=== PATIENT | female | born 1980 | race Caucasian/White ===

== ENCOUNTER 2016-12-19 12:49 | Emergency (ER) | payer OTHER ==
[~2016-12-19] VITALS: Ht 175.3 cm; Wt 68.0 kg
[~2016-12-19 12:49] MED LIST: OXYC-360 PO; PRENTAB72 PO
[2016-12-19 12:54] VITALS: BP 133/81; PULSE 105; RESP 16; TEMP 98.6; O2SAT 98
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
--- NOTE | 2016-12-19 14:38 | RADRPT ---
EXAM DATE/TIME: 12/19/2016 14:06 [facility] COMPARISON: No previous studies available for comparison. INDICATIONS : Foreign body. Deep abrasion to left foot. MEDICAL HISTORY : None. SURGICAL HISTORY : None. ENCOUNTER: Initial ACUITY: 2 days PAIN SCORE: 10/10 LOCATION: Left dorsolateral foot FINDINGS: Three view examination of the left foot demonstrates no soft tissue swelling, dislocation, or fractur e. The tarsal bones appear intact. The interphalangeal and metatarsophalangeal joints are intact. The calcaneus is intact. Bony mineralization is normal. No radiopaque foreign body observed. CONCLUSION: No radiopaque foreign body observed. Alni Carpio Jr., MD on December 19, 2016 at 14:36 Board Certified Radiologist. This report was verified electronically.
[2016-12-19] MEDS ORDERED: IBUPROFEN 600 MG TAB PO ONE (14:45)
[2016-12-19] MEDS ORDERED: LIDOCAINE 1%/EPINEPHrine 1:100,000 SOLN 20 ML VIAL INFIL ONE (14:45)
[2016-12-19] MEDS ORDERED: SULFAMETHOXAZOLE-TRIMETHOPRIM DS 800-160 MG TAB PO ONE (14:45)
[2016-12-19] MEDS ORDERED: CEPHALEXIN MONOHYDRATE 500 MG CAP PO ONE (14:45)
[2016-12-19] MEDS ORDERED: ACETAMINOPHEN 500 MG CPLT PO ONE (14:45)
[2016-12-19] MEDS ORDERED: BACT800T5 PO (15:02)
[2016-12-19] MEDS ORDERED: CEPH500C PO (15:02)
[2016-12-19] MEDS ORDERED: IBUP-232 PO (15:02)
[2016-12-19] MEDS ORDERED: NON-500T13 PO (15:02)
== END 2016-12-19 15:27 | disposition home or self-care (01) ==
LOC: PHED 12:49 → PHEFT 15:27
DX: S91.312A Laceration without foreign body, left foot, initial encounter (principal); X58.XXXA Exposure to other specified factors, initial encounter; Y93.55 Activity, bike riding; Y92.488 Other paved roadways as the place of occurrence of the external cause
CPT/HCPCS: 12001; 73630

== ENCOUNTER 2018-01-15 06:40 | Inpatient (IN) ==
--- NOTE | 2018-01-14 18:44 | MH ---
cc: London Rosenberg MD DATE OF ADMISSION: 01/15/2018 REASON FOR ADMISSION: Repeat elective section at term. HISTORY OF PRESENT ILLNESS: The patient is a 37-year-old female, 2, para 1, estimated date of confinement 01/21/2018. She is 39 weeks and 1 day with an uncomplicated and elected for repeat section at term. The patient's obstetrical history is unremarkable. LABORATORY DATA: Group B strep status negative. Diabetes testing negative. Cell free DNA aneuploidy testing negative. The patient's blood type is AB negative. ALLERGIES: THE PATIENT HAS NO KNOWN DRUG ALLERGIES. PAST MEDICAL HISTORY: She denies any current chronic or systemic disease processes. SOCIAL HISTORY: The patient is and has a good support system. The patient denies use of alcohol, tobacco or illicit substances. OBSTETRICAL HISTORY: Previously a full-term in 2012 resulting in a delivery due to cephalopelvic disproportion. Baby weighed 9 pounds 3 ounces, healthy male. PHYSICAL EXAMINATION: GENERAL: The patient is a well-appearing, well-nourished female in no acute distress. VITAL SIGNS: Stable. Pulse and respiratory rate are within normal limits. Blood pressure is 114/78. The patient's heart tones are 140s. HEENT: Shows no adenopathy or thyromegaly. Neck supple with full range of motion. LUNGS: Clear in all proctor. CARDIAC: Regular rate and rhythm without murmur, rub or gallop. ABDOMEN: Gravid, full-term. Fundal height is 42 cm. PELVIC: Deferred. She has no associated symptoms of bleeding, pain, leakage of fluid or pressure. EXTREMITIES: Symmetrical with full range of motion. There is no cyanosis, clubbing or edema. NEUROLOGIC: Grossly intact, nonfocal. ASSESSMENT AND PLAN: The patient is term, 39 weeks and 1 day, for repeat elective section at term, uncomplicated course and history. The patient will receive Ancef as a prophylactic antibiotic. London Rosenberg MD SJC/jl , 06:05 PM , 06:14 PM
[2018-01-15] MEDS ORDERED: Morphine Sulfate PF Inj 5 MG/10 ML Ampul ONE (07:59)
[2018-01-15] MEDS ORDERED: Citric Acid/Sodium Citrate Liq 30 ML UDC PO SCH (08:00)
[2018-01-15] MEDS ORDERED: ceFAZolin Inj 2,000 MG in Sodium Chlor 0.9% Inj 80 ML IV.SIG SCH (08:00)
[2018-01-15 08:07] LABS: Baso % (Auto) 0.4 % (0.0-2.0); Eos % (Auto) 0.6 % (0.0-4.0); Hematocrit 37.9 % (35.0-46.0); Hemoglobin 12.7 gm/dL (11.6-15.3); Lymph # (Auto) 1.2 th/mm3 (1.0-4.8); Lymph % (Auto) 24.5 % (9.0-44.0); Mean Corpuscular HGB Conc 33.4 % (32.0-36.0); Mean Corpuscular Hemoglobin 28.2 pg (27.0-34.0); Mean Corpuscular Volume 84.3 fL (80.0-100.0); Mean Platelet Volume 8.8 fL (7.0-11.0); Mono # (Auto) 0.4 th/mm3 (0.0-0.9); Mono % (Auto) 8.3 % (0.0-8.0); Neut # (Auto) 3.3 th/mm3 (1.8-7.7); Neut % (Auto) 66.2 % (16.0-70.0); Platelet Count 164 th/mm3 (150-450); Red Cell Distribution Width 14.4 % (11.6-17.2)
[2018-01-15 08:41] LABS: Bacteria,Urine Few /hpf; Bilirubin,Urine Negative (Negative); Clarity,Urine Hazy (Clear); Color,Urine Yellow (Yellw/Straw); Glucose,Urine (UA) Negative (Negative); Leukocyte Esterase,Urine Negative (Negative); Mucus,Urine Few /lpf (Occasional); Nitrite,Urine Negative (Negative); Specific Gravity,Urine 1.015 (1.002-1.035); Squamous Epithelial Cell,Urine 3 /hpf (0-5)
[2018-01-15 09:05] LABS: Amphetamine Screen,Urine Neg (Neg); Barbiturate Screen,Urine Neg (Neg); Cannabinoid Screen,Urine Neg (Neg); Cocaine Screen,Urine Neg (Neg)
[2018-01-15 09:06] LABS: Opiate Screen,Urine Neg (Neg)
[2018-01-15] MEDS ORDERED: Oxytocin 30 Units/500ml Premix 30 UNITS/500 ML BAG IV.SIG ONE (09:37)
--- NOTE | 2018-01-15 09:37 | P.OBDELI ---
Procedure Note Performed by: London Rosenberg MD Procedure: Repeat Low Transverse Section Indication for Delivery: Desired elective repeat Informed Consent Obtained: For anesthesia, For procedure Confirmed Correct: Patient, Procedure, Site, Time-out taken Anesthesia: Spinal Medication Prior to Procedure: As documented in eMAR Monitoring During Procedure: Blood pressure monitoring, monitor car operator, doppler, Pulse oximetry Urinary Catheter: Inserted using sterile technique, To dependent drainage Sterile Preparation: Duraprep, In usual fashion Position: Supine with wedge to right side, Supine with safety belt applied - Operative Features Skin Incision: Pfannenstiel Uterine Incision: Low transverse w/knife / scissors Membranes Ruptured: Artificially, Appearance of fluid (clear) Presentation: Occiput anterior (KiWi vacuum used with 1 pull, no pop off) Status of : Viable, Cord blood, Nursery present Placenta Delivered: Intact Medications: Antibiotics, Oxytocin Estimated blood loss (mL): 600 Maternal Condition: Stable Baby Condition: Stable - Infant: Male Delivery Date: 01/15/18 Weight: 3.827 kg score (1 min): 9 score (5 min): 10
--- NOTE | 2018-01-15 10:25 | MP ---
cc: Londno Rosenberg MD DATE OF OPERATION: 01/15/2018 PREOPERATIVE DIAGNOSES: Term intrauterine , previous section, for elective repeat section. PROCEDURE PERFORMED: Repeat low transverse section, delivery of viable male . POSTOPERATIVE DIAGNOSES: Term intrauterine , previous section, for elective repeat section. SURGEON: London Rosenberg MD. ANESTHESIA: Spinal. ESTIMATED BLOOD LOSS: 600 mL. DRAINS: Richard to gravity. OPERATIVE FINDINGS: Male delivered with the aid of a vacuum extractor x 1 pull. No pop-off. Baby weighed 8 pounds 7 ounces. Apgars were 9 at one minute, 10 at five. INDICATIONS FOR PROCEDURE: The patient,at term for elective , history of previous cesareans section. PROCEDURE DESCRIPTION: The patient received Ancef 2 grams prophylactically. She was taken to the operative suite in stable condition with a category 1 heart rate tracing documented. The patient underwent spinal anesthetic without complication with good results. She had sequentials placed on the lower extremities for VTE prophylaxis. She had a Richard catheter inserted by sterile technique. She was prepped and draped. Timeout was conducted, agreed by all present in the room. The patient had excellent pain control. The Pfannenstiel scar from the previous section was utilized using a #10 blade, opening the incision down through the subcutaneous space to the fascia, which was scored laterally by sharp dissection, dissecting away any scar and then the rectus muscle in the midline. The peritoneum was identified and opened sharply. The bladder blade was placed over the pubic symphysis. There was no scarring or adhesions noted. The lower uterine segment was identified and a transverse incision was made in the lower uterine segment with clear fluid. The was delivered with the aid of a vacuum extractor due to anatomic restrictions. This was uncomplicated. The infant was delivered in total with good tone and cry. There was no cord entanglement. A 45-second cord delayed clamping was conducted. Cord was doubly clamped and then the infant was taken to [place] by the nursery staff. Good tone and cry were noted throughout. Cord sample was obtained for typing. Placenta was removed intact with trailing membranes along with the umbilical cord and then it was sent for donation. The uterus was examined. There was no retained tissue. Good hemostasis was documented. The uterus was closed with a double layer, first was a running locking suture of #0 Monocryl followed by a second imbricating suture of #0 Monocryl. No hematoma was noted. Good result was noted. Pelvis was irrigated and aspirated. Once all the free fluid was retrieved, the peritoneal layer was closed with a running suture of 2-0 Monocryl. The muscle belly was reapproximated with an interrupted mattress suture of 2-0 Monocryl. The fascia was then closed with #0 Vicryl in a simple running fashion with good result. The subcutaneous space was closed after cauterizing any active bleeding using a running suture of 2-0 Monocryl to reapproximate the space. Naper were used to reapproximate the skin edge and a dressing was applied. The final count was correct. The patient was stable. Infant was doing well in the nursery. MD MARIO Barkley/neftaly , 09:48 AM , 09:54 AM
[2018-01-15] MEDS ORDERED: Oxytocin 30 Units/500ml Premix 30 UNITS/500 ML BAG ONE (10:50)
[2018-01-15] MEDS ORDERED: Naloxone Inj 0.4 MG/ML Vial IV.PUSH PRN (11:07)
[2018-01-15] MEDS ORDERED: Phenylephrine/NS 1000 MCG/10ML Syringe IV.PUSH ONE (12:00)
[2018-01-15] MEDS ORDERED: Oxytocin 30 Units/500ml Premix 30 UNITS/500 ML BAG IV.SIG PRN (14:37)
[2018-01-15] MEDS: Ibuprofen 600 MG Tablet PO PRN ×2 (16:41→22:57)
[2018-01-16] MEDS: Ibuprofen 600 MG Tablet PO PRN ×3 (07:24→21:26)
--- NOTE | 2018-01-16 08:09 | P.PNOB ---
Subjective Post op day: 1 Interval history: Еленаgn very well with nursing pain well controlled no concerns today wants to do circ in office Objective Vital Signs/I&O: Vital Signs 01/15/18 09:40 01/15/18 09:55 01/15/18 10:10 Temperature 98.2 F Pulse Rate 92 H 92 H 90 Respiratory Rate 14 15 15 Blood Pressure 108/61 107/57 L 104/58 L 01/15/18 10:25 01/15/18 10:40 01/15/18 11:20 Temperature 97.8 F 98.1 F Pulse Rate 97 H 97 H 86 Respiratory Rate 17 17 16 Blood Pressure 94/59 L 116/60 109/69 01/15/18 16:32 01/15/18 20:00 01/15/18 23:59 Temperature 98.7 F 98.6 F 98.4 F Pulse Rate 78 95 H 101 H Respiratory Rate 17 16 18 Blood Pressure 114/76 124/83 121/73 01/16/18 04:00 Temperature 98.1 F Pulse Rate 91 H Respiratory Rate 17 Blood Pressure 111/71 Result Diagrams: 01/15/18 07:25 Objective Remarks: GENERAL: Well-nourished, well-developed patient. CARDIOVASCULAR: Regular rate and rhythm without murmurs, gallops, or rubs. RESPIRATORY: Breath sounds equal bilaterally. No accessory muscle use. ABDOMEN/GI: Abdomen soft, non-tender, bowel sounds present. bandage Clean, dry and intact. Fundus: Firm, non-tender at umbilicus. GENITOURINARY: Light to moderate bleeding. EXTREMITIES: No cyanosis or edema, non-tender, without signs of DVT. Medications and IVs: Active Medications Citric Acid/Sodium Citrate (Sodium Citrate/Citric Acid Liq) 30 ml PO [employer] BR[employer]PERATOR [facility] Stop: 01/19/18 07:59 Last Admin: 01/15/18 10:04 Dose: 30 ml Diphenhydramine HCl (Benadryl) 50 mg PO Q6H PRN PRN Reason: MILD TO MODERATE ITCHING Stop: 01/16/18 11:06 Diphenhydramine HCl (Benadryl Inj) 25 mg IV.PUSH Q6H PRN PRN Reason: MILD TO MODERATE ITCHING Stop: 01/16/18 11:06 Diphtheria/Pertussis/Tetanus Vacc (Boostrix Vaccine Inj) 0.5 ml IM .ONCE ONE Stop: 01/16/18 16:01 Cefazolin Sodium 2,000 mg/ (Sodium Chloride) 100 mls @ 200 mls/hr IV.SIG [employer] BR[employer]ATOR [facility] Stop: 01/19/18 07:59 Last Admin: 01/15/18 08:38 Dose: 200 mls/hr Lactated Ringer's (Lr 1000 Ml Inj) 1,000 mls @ 150 mls/hr IV.CONT .Q6H40M [facility] Last Admin: 01/15/18 18:29 Dose: Not Given Lactated Ringer's (Lr 1000 Ml Inj) 1,000 mls @ 100 mls/hr IV.CONT .Q10H [facility] Stop: 01/16/18 10:36 Oxytocin (Pitocin 30 Units/Ns 500 Ml Premix) 30 units in 500 mls @ 100 mls/hr IV.SIG UNSCH PRN PRN Reason: Heavy bleeding Ibuprofen (Motrin) 600 mg PO Q6H PRN PRN Reason: CRAMPING Last Admin: 01/16/18 07:24 Dose: 600 mg Measles/Mumps/Rubella Vaccine Live (M-M-R Ii Vaccine Inj) 0.5 ml SQ .ONCE ONE Stop: 01/16/18 16:01 Miscellaneous Information [place] [facility] 1 each OTHER UNSCH PRN PRN Reason: SEE LABEL COMMENTS Stop: 01/16/18 11:06 Miscellaneous Information [place] [place] 1 each OTHER UNSCH PRN PRN Reason: SEE LABEL COMMENTS Stop: 01/16/18 11:06 Naloxone HCl (Narcan Inj) 0.4 mg IV.PUSH UNSCH PRN PRN Reason: SEE LABEL COMMENTS Stop: 01/16/18 11:06 Oxycodone/Acetaminophen (Percocet 5/325 Mg) 2 tab PO Q4H PRN PRN Reason: PAIN SCALE 6 TO 10 Last Admin: 01/16/18 07:24 Dose: 2 tab Oxycodone/Acetaminophen (Percocet 5/325 Mg) 1 tab PO Q4H PRN PRN Reason: PAIN SCALE 3 TO 5 Last Admin: 01/16/18 02:52 Dose: 1 tab Sodium Chloride (Ns Flush) 2 ml IV.FLUSH PRN PRN PRN Reason: FLUSH AFTER USING IV ACCESS Sodium Chloride (Ns Flush) 2 ml IV.FLUSH BID [facility] Last Admin: 01/16/18 05:01 Dose: Not Given Assessment and Plan - Diagnosis (1) Previous section Code(s): Z98.891 - History of uterine scar from previous surgery Status: Acute (2) Status post delivery Code(s): Z98.891 - History of uterine scar from previous surgery Status: Acute - Plan routine post op plans on circ in office discussed staple removal activity and precautions home POD 2 or 3
[2018-01-16] MEDS: Senna/Docusate Sodium 8.6/50 MG Tablet PO PRN (11:52)
[2018-01-16] MEDS ORDERED: Diphtheria/Tetanus/Pertussis Vaccine Inj 0.5 ML Syringe IM ONE (16:00)
[2018-01-16] MEDS ORDERED: Measles/Mumps/Rubella Vaccine Inj 0.5 ML Vial SQ ONE (16:00)
[2018-01-17] MEDS: Ibuprofen 600 MG Tablet PO PRN ×3 (06:16→21:10)
--- NOTE | 2018-01-17 10:29 | P.OBGPN ---
Queried PDMP and reviewed report
--- NOTE | 2018-01-17 10:31 | P.DS ---
Date of admission: 01/15/18 06:40 Primary care physician: Patrizia Hernández Brief History from admission: 37-year-old 002 who presented at 39 weeks for scheduled repeat section, please see operative report for further details, she was discharged on postoperative day #3 without complications. DS: Summary Hospital Course: see brief history - Time Spent with Patient Total time spent providing and/or coordinating discharge services: Less than 30 minutes Exam Vital signs: Vital Signs 01/16/18 17:20 01/16/18 17:24 01/16/18 17:45 Temperature 98.0 F 98.0 F 98.0 F Pulse Rate 93 H 93 H 80 Respiratory Rate 18 16 Blood Pressure 129/89 129/89 119/78 01/16/18 20:00 01/16/18 22:21 01/16/18 22:22 Temperature 98.3 F Pulse Rate 93 H Respiratory Rate 18 18 18 Blood Pressure 119/76 01/17/18 03:27 01/17/18 09:32 01/17/18 09:33 Temperature 98.6 F Pulse Rate 84 Respiratory Rate 20 18 Blood Pressure 120/76 Intake & Output 01/16/18 01/17/18 01/17/18 18:59 06:59 18:59 Intake Total 1999 Balance 1999 Intake: IV 1999 LR 1000 mL Inj 1,000 ML @ 150 1999 mls/hr IV.CONT .Q6H40M [facility] Rx#: [id number] Intake (Blood Product) Amt 0 / 0 Rho(D) Immune Globulin Unit 0 / 0 [id number] Results Procedures completed during hospitalization: Repeat Labs on day of discharge: Labs from last 24 hours 01/15/18 18:00 Blood Type AB Negative Ab Screen Tube Method Negative Blood Bank Comment Discharge Plan - Discharge Disposition Patient Disposition: 01 Discharge Home - Discharge Condition Condition: Good - Discharge Order Discharge Orders: Discharge Order (Routine); Ordered 01/18/18 Ordered By: Jose J Strickland - Discharge Details Anticipated Discharge Date: 01/18/18 - Physicians Team Primary Care Provider: Patrizia Hernández Attending Provider: London Rosenberg - Rxs /Orders / Referrals /Forms Prescriptions: Continue Referrals: Patrizia Hernández MD [Primary Care Provider] - See Instructions - Discharge Instructions Patient Printed Instructions: (DC) - Post Discharge Care Plan Care Plan Goals: Congratulations on your new baby! We want your recovery to be kaba and trouble free. Please Report the Following Symptoms to Your Doctor: -Temperature above 100.5 degrees -Redness of incision or excessive or foul smelling drainage -Unusual pain or calf pain -Increased vaginal bleeding -Painful or difficulty urinating -Feelings of extreme sadness or anxiety Goals to Promote Your Health * To prevent worsening of your condition and complications * To maintain your health at the optimal level Directions to Meet Your Goals Take your medications as prescribed Follow your dietary instruction Follow activity as directed Ensure plenty of rest for recovery Drink fluids for hydration Keep your appointments as scheduled Take your immunizations and boosters as scheduled If your symptoms worsen call your OB Physician, or go to an Urgent Care Center or Emergency Room Smoking is Dangerous to your health. Avoid second hand smoke Call the 24-hour crisis hotline for domestic abuse at
[2018-01-17] MEDS: Senna/Docusate Sodium 8.6/50 MG Tablet PO PRN (12:56)
--- NOTE | 2018-01-17 13:39 | P.PNOB ---
Subjective Post op day: 2 Interval history: POD#2; Stable ,doing well, anticipate discharge home POD#3 Objective Vital Signs/I&O: Vital Signs 01/16/18 17:20 01/16/18 17:24 01/16/18 17:45 Temperature 98.0 F 98.0 F 98.0 F Pulse Rate 93 H 93 H 80 Respiratory Rate 18 16 Blood Pressure 129/89 129/89 119/78 01/16/18 20:00 01/16/18 22:21 01/16/18 22:22 Temperature 98.3 F Pulse Rate 93 H Respiratory Rate 18 18 18 Blood Pressure 119/76 01/17/18 03:27 01/17/18 09:32 01/17/18 09:33 Temperature 98.6 F Pulse Rate 84 Respiratory Rate 20 18 Blood Pressure 120/76 Intake & Output 01/16/18 01/17/18 01/17/18 18:59 06:59 18:59 Intake Total 1999 Balance 1999 Intake: IV 1999 LR 1000 mL Inj 1,000 ML @ 150 1999 mls/hr IV.CONT .Q6H40M [facility] Rx#: [id number] Intake (Blood Product) Amt 0 / 0 Rho(D) Immune Globulin Unit 0 / 0 [id number] Result Diagrams: 01/15/18 07:25 Objective Remarks: GENERAL: Well-nourished, well-developed patient. CARDIOVASCULAR: Regular rate and rhythm without murmurs, gallops, or rubs. RESPIRATORY: Breath sounds equal bilaterally. No accessory muscle use. ABDOMEN/GI: Abdomen soft, non-tender, bowel sounds present. Incision: Clean, dry and intact. Fundus: Firm, non-tender at umbilicus. GENITOURINARY: Light to moderate bleeding. EXTREMITIES: No cyanosis or edema, non-tender, without signs of DVT. Medications and IVs: Active Medications Citric Acid/Sodium Citrate (Sodium Citrate/Citric Acid Liq) 30 ml PO HOMICIDE [employer] [facility] Stop: 01/19/18 07:59 Last Admin: 01/15/18 10:04 Dose: 30 ml Cefazolin Sodium 2,000 mg/ (Sodium Chloride) 100 mls @ 200 mls/hr IV.SIG HOMICIDE [employer] [facility] Stop: 01/19/18 07:59 Last Admin: 01/15/18 08:38 Dose: 200 mls/hr Lactated Ringer's (Lr 1000 Ml Inj) 1,000 mls @ 150 mls/hr IV.CONT .Q6H40M [facility] Last Infusion: 01/16/18 08:58 Dose: Infused Oxytocin (Pitocin 30 Units/Ns 500 Ml Premix) 30 units in 500 mls @ 100 mls/hr IV.SIG UNSCH PRN PRN Reason: Heavy bleeding Ibuprofen (Motrin) 600 mg PO Q6H PRN PRN Reason: CRAMPING Last Admin: 01/17/18 12:53 Dose: 600 mg Oxycodone/Acetaminophen (Percocet 5/325 Mg) 2 tab PO Q4H PRN PRN Reason: PAIN SCALE 6 TO 10 Last Admin: 01/16/18 07:24 Dose: 2 tab Oxycodone/Acetaminophen (Percocet 5/325 Mg) 1 tab PO Q4H PRN PRN Reason: PAIN SCALE 3 TO 5 Last Admin: 01/17/18 09:04 Dose: 1 tab Senna/Docusate Sodium (Cris-Colace) 2 tab PO Q12H PRN PRN Reason: CONSTIPATION Last Admin: 01/17/18 12:56 Dose: 2 tab Sodium Chloride (Ns Flush) 2 ml IV.FLUSH PRN PRN PRN Reason: FLUSH AFTER USING IV ACCESS Sodium Chloride (Ns Flush) 2 ml IV.FLUSH BID [facility] Last Admin: 01/16/18 22:21 Dose: Not Given Assessment and Plan - Diagnosis (1) Previous section Code(s): Z98.891 - History of uterine scar from previous surgery Status: Acute (2) Status post delivery Code(s): Z98.891 - History of uterine scar from previous surgery Status: Acute - Plan POD#2; Stable, planning disharge for POD#3
[2018-01-18] MEDS: Ibuprofen 600 MG Tablet PO PRN (08:03)
[2018-01-18] MEDS: Senna/Docusate Sodium 8.6/50 MG Tablet PO PRN (08:03)
--- NOTE | 2018-01-18 08:13 | P.PNOB ---
Subjective Post op day: 3 Interval history: Doing well, no change from yesterday, ready for discharge home. Objective Vital Signs/I&O: Vital Signs 01/17/18 09:32 01/17/18 09:33 01/17/18 19:56 Temperature 98.6 F 98.2 F Pulse Rate 84 76 Respiratory Rate 18 17 Blood Pressure 120/76 115/67 Result Diagrams: 01/15/18 07:25 Objective Remarks: GENERAL: Well-nourished, well-developed patient. CARDIOVASCULAR: Regular rate and rhythm without murmurs, gallops, or rubs. RESPIRATORY: Breath sounds equal bilaterally. No accessory muscle use. ABDOMEN/GI: Abdomen soft, non-tender, bowel sounds present. Incision: Clean, dry and intact. Fundus: Firm, non-tender at umbilicus. GENITOURINARY: Light to moderate bleeding. EXTREMITIES: No cyanosis or edema, non-tender, without signs of DVT. 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 [facility] Stop: 01/19/18 07:59 Last Admin: 01/15/18 10:04 Dose: 30 ml Cefazolin Sodium 2,000 mg/ (Sodium Chloride) 100 mls @ 200 mls/hr IV.SIG [employer]IST[employer] [facility] Stop: 01/19/18 07:59 Last Admin: 01/15/18 08:38 Dose: 200 mls/hr Lactated Ringer's (Lr 1000 Ml Inj) 1,000 mls @ 150 mls/hr IV.CONT .Q6H40M [facility] Last Infusion: 01/16/18 08:58 Dose: Infused Oxytocin (Pitocin 30 Units/Ns 500 Ml Premix) 30 units in 500 mls @ 100 mls/hr IV.SIG UNSCH PRN PRN Reason: Heavy bleeding Ibuprofen (Motrin) 600 mg PO Q6H PRN PRN Reason: CRAMPING Last Admin: 01/18/18 08:03 Dose: 600 mg Oxycodone/Acetaminophen (Percocet 5/325 Mg) 2 tab PO Q4H PRN PRN Reason: PAIN SCALE 6 TO 10 Last Admin: 01/16/18 07:24 Dose: 2 tab Oxycodone/Acetaminophen (Percocet 5/325 Mg) 1 tab PO Q4H PRN PRN Reason: PAIN SCALE 3 TO 5 Last Admin: 01/17/18 21:10 Dose: 1 tab Senna/Docusate Sodium (Cris-Colace) 2 tab PO Q12H PRN PRN Reason: CONSTIPATION Last Admin: 01/18/18 08:03 Dose: 2 tab Sodium Chloride (Ns Flush) 2 ml IV.FLUSH PRN PRN PRN Reason: FLUSH AFTER USING IV ACCESS Sodium Chloride (Ns Flush) 2 ml IV.FLUSH BID MARY Last Admin: 01/16/18 22:21 Dose: Not Given Assessment and Plan - Plan 37-year-old 002 status post scheduled repeat low transverse at 39 weeks. 1. Postoperative day #3: Afebrile, vital signs stable, discharge home today, discussed precautions expectations and follow-up. Will remove kacie and replaced with Steri-Strips. -Male , for circumcision next week in the office.
[2018-01-18 08:52] VITALS: BP 105/65; PULSE 82; RESP 16; TEMP 98.1
== END 2018-01-18 15:20 | disposition home or self-care (01) ==
LOC: H2E 06:40 → H1EA 13:05
PROVIDERS: ADMIT Obstetrics & Gynecology; ATTEND Obstetrics & Gynecology